=== PATIENT | male | born 1950 | race Caucasian/White ===

== ENCOUNTER 2024-03-29 22:29 | Inpatient (IN) | payer MEDICARE, OTHER, SELFPAY ==
[2024-03-29 22:40] VITALS: BP 108/68; PULSE 118; PULSE 120; RESP 18; RESP 21; TEMP 37.6; O2SAT 92
[2024-03-29 23:00] VITALS: BP 108/68; PULSE 119; RESP 19; O2SAT 92
[2024-03-29 23:14] LABS: Add Manual Diff / Slide Review NO; Basophils Absolute Auto 100 /uL (0-100); Basophils Percent Auto 0.4 % (0-2); Eosinophils Absolute Auto 0 /uL (0-450); Eosinophils Percent Auto 0.1 % (2-4); Hematocrit 31.5 % (41-53); Hemoglobin 10.5 g/dL (13.5-17.5); INR 1.2 (0.9-1.3); Lymphocytes Absolute Auto 700 /uL (1100-4500); Lymphocytes Percent Auto 3.7 % (25-40); Mean Corpuscular HGB Conc 33.3 % (30-36); Monocytes Absolute Auto 1200 /uL (0-900); Monocytes Percent Auto 6.4 % (3-14); Neutrophils Absolute Auto 17500 /uL (1500-7000); Neutrophils Percent Auto 89.4 % (50-75); Platelet Count 350 X10^3/uL (150-400); Prothrombin Time 13.7 SECONDS (9.4-12.5); Red Blood Cell Count 3.75 X10^6/uL (4.5-5.9); Red Cell Distribution Width 13.9 % (11.6-14.8); White Blood Cell Count 19.5 X10^3/uL (4.5-11.0)
[2024-03-29 23:15] LABS: PTT Partial Thromboplastin Tim 30 SECONDS (25.1-36.5)
[2024-03-29 23:17] LABS: Alanine Aminotransferase 16 IU/L (<50); Albumin Globulin Ratio 1.5 (1.0-2.8); Alkaline Phosphatase 78 U/L (38-126); Aspartate Aminotransferase 21 IU/L (17-59); BUN Creatinine Ratio 36.1 (6-22); Bilirubin Total 1.3 mg/dL (0.2-1.3); Blood Urea Nitrogen 35 mg/dL (9-20); Calcium 8.8 mg/dL (8.4-10.2); Carbon Dioxide 20 mmol/L (22-32); Chloride 110 mmol/L (98-107); Estimated Glomerular Filt Rate > 60 mL/min (>60); Globulin 2.7 g/dL (1.7-4.1); Glucose 194 mg/dL (80-110); HEMOLYSIS < 15 (0-50); Potassium 4.1 mmol/L (3.4-5.1); Sodium 141 mmol/L (137-145); Total Protein 6.7 g/dL (6.3-8.2)
[2024-03-29 23:18] LABS: Lactate (Lactic Acid) 3.2 mmol/L (0.7-2.1)
[2024-03-29 23:30] VITALS: BP 111/65; PULSE 117; RESP 20; O2SAT 91
[2024-03-30] VITALS (8 sets, daily range): BP systolic 62–126; BP diastolic 38–69; PULSE 108–123; RESP 15–32; TEMP 36.2–37.3; O2SAT 80–93; BMI 30.5
--- NOTE | 2024-03-30 00:09 | PC.NURSE ---
Dr Houston notified of Lactate and ordered BCx2.
--- NOTE | 2024-03-30 00:29 | ED.WEAKNESS ---
HPI - Weakness General Chief complaint: Abdominal Pain Stated complaint: GI Bleed Time Seen by Provider: 03/29/24 22:41 Source: EMS Mode of arrival: EMS History of Present Illness HPI Narrative: Patient is a 73-year-old male with history of advanced dementia who resides at [facility]. He is no longer verbal wheelchair-bound sometimes interacts and laughs. Staff reported dark tarry stools ongoing for about 2 weeks he started shaking at dinnertime unable to hold any sort of silverware. He does need assistance with feeding as well. It was recommended that he be brought to the ED for evaluation. is at bedside long conversation with her. He is a DNR we talked about goals of care and goals with the ED visit. At this time she was agreeable to blood work but does not want much else done. She would like to make him comfortable. No IV fluids no antibiotics no imaging Patient was in hospice if few months back but was doing well and ultimately discharged from hospice. stated he had a great day yesterday and ambulated which was the 1st in a long time. Related Data Allergies Allergy/AdvReac Type Severity Reaction Status Date / Time No Known Drug Allergies Allergy Verified 03/30/24 00:40 Patient History Social History Smoking Status: Never smoker Smoking Status: Never smoker Substance Use Type: does not use Exam Initial Vital Signs Initial Vital Signs: Vital Signs Temperature 99.6 F 03/29/24 22:40 Pulse Rate 118 H 03/29/24 22:40 Respiratory Rate 18 03/29/24 22:40 Blood Pressure 108/68 03/29/24 22:40 Pulse Oximetry 92 03/29/24 22:40 Oxygen Delivery Method Room Air 03/29/24 22:40 Course Orders Ordered: ED Orders 03/29/24 21:45 Blood Culture Stat 03/29/24 22:46 CBC Auto Diff [Complete Blood Count AUTO DIFF] Stat CMP [Comprehensive Metabolic Panel] Stat Lactate (Lactic Acid) Stat PTT Partial Thromboplastin Jeff Stat Prothrombin Time INR Stat 03/29/24 22:50 Type and Screen Stat Discontinued Medications Morphine Sulfate (Morphine 2 Mg/Ml Inj) 2 mg IV NOW ONE Stop: 03/30/24 00:30 Last Admin: 03/30/24 00:39 Dose: 2 mg Documented By: Morphine Sulfate (Morphine 2 Mg/Ml Inj) 2 mg IV NOW ONE Stop: 03/30/24 03:58 Vital Signs Vital signs: Vital Signs - 8 hr 03/29/24 22:40 03/29/24 22:40 03/29/24 23:00 Temperature 99.6 F Pulse Rate 118 H 120 H 119 H Respiratory Rate 18 21 19 Blood Pressure 108/68 Pulse Oximetry 92 92 92 Oxygen Delivery Method Room Air 03/29/24 23:00 03/29/24 23:30 03/29/24 23:30 Temperature Pulse Rate 117 H Respiratory Rate 20 Blood Pressure 108/68 111/65 Pulse Oximetry 91 Oxygen Delivery Method 03/30/24 00:00 03/30/24 00:01 03/30/24 00:01 Temperature Pulse Rate 117 H 123 H Respiratory Rate 20 18 Blood Pressure 126/59 L Pulse Oximetry 91 93 Oxygen Delivery Method 03/30/24 00:30 03/30/24 00:31 03/30/24 00:31 Temperature Pulse Rate 118 H 118 H Respiratory Rate 20 15 Blood Pressure 89/69 L Pulse Oximetry 88 L Oxygen Delivery Method MDM - Weakness Lab Data 03/29/24 22:46 03/29/24 22:46 Labs: Lab Results 03/29/24 03/29/24 03/30/24 Range/Units 22:46 22:50 00:10 WBC 19.5 H (4.5-11.0) X10^3/uL RBC 3.75 L (4.5-5.9) X10^6/uL Hgb 10.5 L (13.5-17.5) g/dL Hct 31.5 L (41-53) % MCV 84.0 (80-100) fL MCH 28.0 (26-34) PG MCHC 33.3 (30-36) % RDW 13.9 (11.6-14.8) % Plt Count 350 (150-400) X10^3/uL Neut % (Auto) 89.4 H (50-75) % Lymph % (Auto) 3.7 L (25-40) % [place] % (Auto) 6.4 (3-14) % Eos % (Auto) 0.1 L (2-4) % Baso % (Auto) 0.4 (0-2) % Neut # (Auto) 60888 H (9663-7959) /uL Lymph # (Auto) 700 L (4696-3500) /uL [place] # (Auto) 1200 H (0-900) /uL Eos # (Auto) 0 (0-450) /uL Baso # (Auto) 100 (0-100) /uL PT 13.7 H (9.4-12.5) SECONDS INR 1.2 (0.9-1.3) APTT 30 (25.1-36.5) SECONDS Sodium 141 (137-145) mmol/L Potassium 4.1 (3.4-5.1) mmol/L Chloride 110 H (98-107) mmol/L Carbon Dioxide 20 L (22-32) mmol/L BUN 35 H (9-20) mg/dL Creatinine 0.97 (0.66-1.25) mg/dL Estimated GFR > 60 (>60) mL/min BUN/Creatinine Ratio 36.1 H (6-22) Glucose 194 H (80-110) mg/dL Lactate 3.2 H 1.2 (0.7-2.1) mmol/L Calcium 8.8 (8.4-10.2) mg/dL Total Bilirubin 1.3 (0.2-1.3) mg/dL AST 21 (17-59) IU/L ALT 16 (<50) IU/L Alkaline Phosphatase 78 (38-126) U/L Total Protein 6.7 (6.3-8.2) g/dL Albumin 4.0 (3.5-5.0) g/dL Globulin 2.7 (1.7-4.1) g/dL Albumin/Globulin Ratio 1.5 (1.0-2.8) Blood Type O Positive Antibody Screen Negative [facility] Narrative Medical decision making narrative: Patient is 73-year-old male with advanced end-stage dementia presenting today. Possible GI bleed does appear slightly pale. Apparently he is having some jerking episodes and waking up. Very long discussion with at bedside about goals and plan. She is agreeable to blood work. Blood work is reviewed WBC 19.5, hemoglobin 10.5 hematocrit 31.5, platelets 350 INR 1.2, PTT 30 lactate 3.2 with repeat 1.2 sodium 141, potassium 4.1 chloride 110, carbon dioxide 20, BUN 35 creatinine 0.9 glucose 194 bilirubin 1.3 AST 21 ALT 16 alk-phos 78 ultimately decided no further testing or interventions comfort measures only. Patient is requiring oxygen. At this time [facility] is unable to take him back at this stage without admission to hospice. Dr. Correa, updated on patient's symptoms test results goals of care POLST form, in accepts to observation Patient has been given morphine for comfort he continues to have intermittent twitches. He does wake up and look at me but is very non responsive. Discharge Plan Departure Patient Disposition: Admitted as Observation Clinical Impression: Severe Alzheimer's dementia, Hypoxia Admit Date/Time: 03/30/24 01:30 Admit Provider: Tye Correa
[2024-03-30] MEDS: MORPHINE 2 MG/ML INJ IV ×2 (00:39→04:05)
[2024-03-30 00:44] LABS: Reflexed Lactate in 2 Hours Y
[2024-03-30 00:59] LABS: Lactate 2HR (Lactic Acid Rflx) 1.2 mmol/L (0.7-2.1)
--- NOTE | 2024-03-30 01:33 | PC.NURSE ---
Pt lying back in gurney. Eyes closed, assume asleep. Appears in no acute distress. at bedside. recliner set up for .
--- NOTE | 2024-03-30 02:52 | PC.NURSE ---
Pt lying back in gurney. stepped outside to lay down in car. Pt breathing 22 per min, even and unlabored. Eyes closed, assume asleep.
--- NOTE | 2024-03-30 04:39 | P.HP_ITS ---
History of Present Illness History of Present Illness Date Patient Seen: 03/30/24 Time Patient Seen: 04:15 Chief complaint: GI Bleed Narrative: 73 years old half-way resident with advanced dementia, hypertension and multiple other medical issues was sent to the emergency room for black tarry stools. Patient is at this time nonverbal. Most of the history has been obtained from the chart/caregivers and also spouse/family at the bedside. Patient's cognition has been progressively going downhill and now completely dependent on caregivers for all activities of daily living. Patient was apparently in hospice care a few months ago but discharged with clinical progress. Workup in the ED revealed a hemoglobin of 10.5, WBC of 19.5, lactate of 3.2. Now family has requested focus on comfort care and possibly evaluate for hospice again. Patient was admitted for observation [facility] Social History Smoking Status: Never smoker Meds Home Medications and Allergies Allergies Allergy/AdvReac Type Severity Reaction Status Date / Time No Known Drug Allergies Allergy Verified 03/30/24 00:40 Review of Systems Review of Systems Narrative: non verbal Exam Vital Signs (past 8 hours): - 03/29/24 22:40 03/29/24 22:40 03/29/24 23:00 Temperature 99.6 F Pulse Rate 118 H 120 H 119 H Respiratory Rate 18 21 19 Blood Pressure 108/68 Pulse Oximetry 92 92 92 Oxygen Delivery Method Room Air Oxygen Flow Rate 03/29/24 23:00 03/29/24 23:30 03/29/24 23:30 Temperature Pulse Rate 117 H Respiratory Rate 20 Blood Pressure 108/68 111/65 Pulse Oximetry 91 Oxygen Delivery Method Oxygen Flow Rate 03/30/24 00:00 03/30/24 00:01 03/30/24 00:01 Temperature Pulse Rate 117 H 123 H Respiratory Rate 20 18 Blood Pressure 126/59 L Pulse Oximetry 91 93 Oxygen Delivery Method Oxygen Flow Rate 03/30/24 00:30 03/30/24 00:31 03/30/24 00:31 Temperature Pulse Rate 118 H 118 H Respiratory Rate 20 15 Blood Pressure 89/69 L Pulse Oximetry 88 L Oxygen Delivery Method Oxygen Flow Rate 03/30/24 03:43 03/30/24 03:44 03/30/24 03:44 Temperature Pulse Rate 108 H 110 H Respiratory Rate Blood Pressure 85/58 L Pulse Oximetry 82 L 84 L Oxygen Delivery Method Oxygen Flow Rate 03/30/24 04:13 Temperature 99.2 F Pulse Rate 109 H Respiratory Rate 32 H Blood Pressure 84/55 L Pulse Oximetry 84 L Oxygen Delivery Method Nasal Cannula Oxygen Flow Rate 4 Oxygen Delivery Method Nasal Cannula Oxygen Flow Rate 4 Narrative Exam Narrative: nonverbal and not following commands Objective Labs 03/29/24 22:46 03/29/24 22:46 Labs: Laboratory Results - last 24 hr 03/29/24 03/29/24 03/30/24 22:46 22:50 00:10 WBC 19.5 H RBC 3.75 L Hgb 10.5 L Hct 31.5 L MCV 84.0 MCH 28.0 MCHC 33.3 RDW 13.9 Plt Count 350 Neut % (Auto) 89.4 H Lymph % (Auto) 3.7 L [place] % (Auto) 6.4 Eos % (Auto) 0.1 L Baso % (Auto) 0.4 Neut # (Auto) 46436 H Lymph # (Auto) 700 L [place] # (Auto) 1200 H Eos # (Auto) 0 Baso # (Auto) 100 PT 13.7 H INR 1.2 APTT 30 Sodium 141 Potassium 4.1 Chloride 110 H Carbon Dioxide 20 L BUN 35 H Creatinine 0.97 Estimated GFR > 60 BUN/Creatinine Ratio 36.1 H Glucose 194 H Lactate 3.2 H 1.2 Calcium 8.8 Total Bilirubin 1.3 AST 21 ALT 16 Alkaline Phosphatase 78 Total Protein 6.7 Albumin 4.0 Globulin 2.7 Albumin/Globulin Ratio 1.5 Blood Type O Positive Antibody Screen Negative Assessment & Plan Assessment & Plan narrative: 73 years old half-way resident with advanced dementia, hypertension and multiple other medical issues was sent to the emergency room for black tarry stools. Patient is at this time nonverbal. Most of the history has been obtained from the chart/caregivers and also spouse/family at the bedside. Patient's cognition has been progressively going downhill and now completely dependent on caregivers for all activities of daily living. Patient was apparently in hospice care a few months ago but discharged with clinical progress. Workup in the ED revealed a hemoglobin of 10.5, WBC of 19.5, lactate of 3.2. Now family has requested focus on comfort care and possibly evaluate for hospice again. Patient was admitted for observation 1. GI bleed. Spouse/decision makers are very clear that they do not want any medications or interventions at this time. He is hypotensive and also noted to have black tarry stools. It could very well be life-threatening and family at this time want to focus on comfort care measures only. 2. Advanced dementia with complete dependence on caregivers for all activities of daily living. At this time patient is nonverbal. He is a candidate for hospice and will initiate a referral. In the meantime start comfort care measures 3 hypotension/tachycardia with the likely shock from underlying GI bleed. Focus on comfort care as noted above Patient is admitted under observation status. Extended discussion with the family at the bedside and initiated on comfort care measures only. POLST form has been filed by the emergency room provider. Patient was seen remotely by 2 way video call after obtaining permission from [facility] and patient is located in [place], [place]. Time spent 15 minutes
[2024-03-30] MEDS: MORPHINE 4 MG/ML INJ 3 MG IV ×2 (05:28→08:38)
--- NOTE | 2024-03-30 08:36 | CM.DANOTE ---
Initial DCP Assessment Visit Note Reviewed EMR and team rounds for status updates. Pt was sleeping, is non-verbal at baseline due to end stage Alzheimer's disease. Called pt's , Kellie, to introduce self and role. Pt resides at [facility], they state that they cannot take him back without him re-starting hospice services due to his declining condition and end of life care needs. Pt's states that she would like this BUSINESS PROCESS REPRESENTATIVE to move forward with a new referral so he can return there at discharge. Facility will transport. Payor: Medicare PCP: (facility provider) Pt is a 73 year-old M with end stage Alzheimer's dementia, he is non-verbal, wheelchair bound, and was previously on hospice 2-months ago until they discharged him for improving in overall condition. Pt presented the ED via EMS last evening after staff had noticed that he's been having black, tarry stools for the last weeks. He has been declining overall in cognition, function, and now is completely dependent on all ADL's at the [facility]. shares that she does not want any interventions or testing done on pt, and wants him to be comfort measures only. He did receive a dose of morphone for comfort in the ED, then was admitted to the floor for further tx/evaluation. DCP will continue to follow and assist with the coordination of hospice referral and d/c back to the facility once hospice is ready to admit. Discharge Planning/Care Management Advanced directive, confirm from FAMILY Start: 03/30/24 04:37 Freq: Q24H Status: Active Protocol: Document 03/30/24 05:35 MW (Rec: 03/30/24 06:09 MW [id number]) Advance Directive, confirm on record Time 05:00 Person contacted Copy received Yes CM Discharge Assessment Start: 03/30/24 08:33 Freq: Status: Active Protocol: Document 03/30/24 08:33 DPL (Rec: 03/30/24 08:36 DPL [id number]) Discharge Planning Assessment Assigned It Training Specialist YANE Walls Advance Directives? Yes Advance Directives on File Yes History Provided By Significant Other,Medical Record Expected Length of Stay 2 Has Patient been admitted in last 30 No days? Prior Living Arrangements Assisted Living Comment [facility] Household Members none Type of transporation used prior to Relies on Others admit Facility Name Admitted From: [facility] Willing to Return to Facility? Yes Independent with ADL's No: Pt is end stage Alzheimer' s and is totally dependent on all ADL's. Is patient alert and oriented? No Needs Assistance With Bathing,Eating,Grooming,Meal Prep,Toileting,Managing Medications,Home Chores / Shopping Caregiver for Another No DME Already Rented / Owned Hospital Bed,Wheelchair Comment D/c back to [facility] with hospice services. Barriers to Discharge No Discharge Plan Assisted Living Facility [facility] Transportation Arrangement Facility Additional Comment Hospice of the Review Status In Process Please Provide Date Initial DC 03/30/24 Assessment Was Performed
[2024-03-30] MEDS: LORazepam 2 MG/ML INJ (09:53)
[2024-03-30] MEDS: MORPHINE 50 MG in SODIUM CHLORIDE 0.9% 45 ML IV (09:58)
--- NOTE | 2024-03-30 12:16 | PC.NURSE ---
Upon arrival of this nurse this am, pt appeared to be resting comfortably with sitting at bedside. This nurse called to bedside about an hour later because the pt was moaning and seemed distressed. 3mg IV morphine administered per DEC. This nurse called back to the bedside about an hour and a half after this for abnormal breathing per family members. Pt assessed, found to be agitated and working hard to breath. IV ativan administered with little response. Pt continuing to moan with breathing, at bedside visibly distressed. Morphine drip started at 9:58 at 5mL/hr. Little change in pt condition 30 min later so morphine drip increased to 10mL/hr per Dr. Gauthier. Reassessed around 1130, pt breathing easier and family members at bedside calmer. Bladder scan performed: 45mL urine in bladder. Urine noted in brief and pt still laying on bedding from home. does not want patient moved or bedding removed. Morphine drip increased to 11mL/hr per Dr. Gauthier d/t continued moaning from patient.
--- NOTE | 2024-03-30 16:11 | P.HP_ITS ---
History of Present Illness History of Present Illness Chief complaint: GI Bleed Narrative: From overnight provider: 73 years old fdc resident with advanced dementia, hypertension and multiple other medical issues was sent to the emergency room for black tarry stools. Patient is at this time nonverbal. Most of the history has been obtained from the chart/caregivers and also spouse/family at the bedside. Patient's cognition has been progressively going downhill and now completely dependent on caregivers for all activities of daily living. Patient was apparently in hospice care a few months ago but discharged with clinical progress. Workup in the ED revealed a hemoglobin of 10.5, WBC of 19.5, lactate of 3.2. Now family has requested focus on comfort care and possibly evaluate for hospice again. Patient was admitted for observation. Patient this morning is moaning and family asking for medications to ease his pain. Morphine drip ordered. [facility] Social History household members: none Smoking Status: Never smoker Meds Home Medications and Allergies Home Medications Medication Instructions Recorded Confirmed Type Unobtainable 03/30/24 03/30/24 History Allergies Allergy/AdvReac Type Severity Reaction Status Date / Time atenolol Allergy Verified 03/30/24 05:40 ciprofloxacin Allergy Verified 03/30/24 05:40 metronidazole Allergy Rash Verified 03/30/24 05:40 quetiapine Allergy Verified 03/30/24 05:40 Review of Systems Review of Systems Narrative: non verbal Exam Vital Signs (past 8 hours): - 03/30/24 10:56 03/30/24 12:00 Temperature 97.1 F L Pulse Rate 116 H Respiratory Rate 24 Blood Pressure 62/38 L Pulse Oximetry 80 L Oxygen Delivery Method Nasal Cannula Oxygen Flow Rate 2 Oxygen Delivery Method Nasal Cannula Oxygen Flow Rate 2 Narrative Exam Narrative: nonverbal and not following commands ill-appearing Objective Labs 03/29/24 22:46 03/29/24 22:46 Labs: Laboratory Results - last 24 hr 03/29/24 03/29/24 03/30/24 22:46 22:50 00:10 WBC 19.5 H RBC 3.75 L Hgb 10.5 L Hct 31.5 L MCV 84.0 MCH 28.0 MCHC 33.3 RDW 13.9 Plt Count 350 Neut % (Auto) 89.4 H Lymph % (Auto) 3.7 L [place] % (Auto) 6.4 Eos % (Auto) 0.1 L Baso % (Auto) 0.4 Neut # (Auto) 59914 H Lymph # (Auto) 700 L [place] # (Auto) 1200 H Eos # (Auto) 0 Baso # (Auto) 100 PT 13.7 H INR 1.2 APTT 30 Sodium 141 Potassium 4.1 Chloride 110 H Carbon Dioxide 20 L BUN 35 H Creatinine 0.97 Estimated GFR > 60 BUN/Creatinine Ratio 36.1 H Glucose 194 H Lactate 3.2 H 1.2 Calcium 8.8 Total Bilirubin 1.3 AST 21 ALT 16 Alkaline Phosphatase 78 Total Protein 6.7 Albumin 4.0 Globulin 2.7 Albumin/Globulin Ratio 1.5 Blood Type O Positive Antibody Screen Negative Assessment & Plan Assessment & Plan narrative: 1. GI bleed, with likely hemorrhagic shock 2. Advanced dementia with complete dependence on caregivers for all activities of daily living. 3. Hypotension/tachycardia with the likely shock from underlying GI bleed. Focus on comfort care as noted above Spouse/decision makers are very clear that they do not want any medications or interventions at this time. He is hypotensive and also noted to have black tarry stools. Placed on morphine drip for comfort.
--- NOTE | 2024-03-30 16:20 | PM.DDS.1 ---
Discharge Summary History of Illness Narrative: From overnight provider: 73 years old detention resident with advanced dementia, hypertension and multiple other medical issues was sent to the emergency room for black tarry stools. Patient is at this time nonverbal. Most of the history has been obtained from the chart/caregivers and also spouse/family at the bedside. Patient's cognition has been progressively going downhill and now completely dependent on caregivers for all activities of daily living. Patient was apparently in hospice care a few months ago but discharged with clinical progress. Workup in the ED revealed a hemoglobin of 10.5, WBC of 19.5, lactate of 3.2. Now family has requested focus on comfort care and possibly evaluate for hospice again. Patient was admitted for observation. Patient this morning is moaning and family asking for medications to ease his pain. Morphine drip ordered. Hospital Course Date of Admission: 03/30/24 01:30 Primary care provider: Doctor Herring, Discharge Diagnosis: 1. GI bleed, with likely hemorrhagic shock 2. Advanced dementia with complete dependence on caregivers for all activities of daily living. 3. Hypotension/tachycardia with the likely shock from underlying GI bleed. Focus on comfort care as noted above Hospital Course: Spouse/decision makers are very clear that they do not want any medications or interventions at this time. He is hypotensive and also noted to have black tarry stools. Placed on morphine drip for comfort. He at approx 1430 with family at bedside. Objective Labs 03/29/24 22:46 03/29/24 22:46 Labs: Laboratory Results - last 24 hr 03/29/24 03/29/24 03/30/24 22:46 22:50 00:10 WBC 19.5 H RBC 3.75 L Hgb 10.5 L Hct 31.5 L MCV 84.0 MCH 28.0 MCHC 33.3 RDW 13.9 Plt Count 350 Neut % (Auto) 89.4 H Lymph % (Auto) 3.7 L [place] % (Auto) 6.4 Eos % (Auto) 0.1 L Baso % (Auto) 0.4 Neut # (Auto) 94768 H Lymph # (Auto) 700 L [place] # (Auto) 1200 H Eos # (Auto) 0 Baso # (Auto) 100 PT 13.7 H INR 1.2 APTT 30 Sodium 141 Potassium 4.1 Chloride 110 H Carbon Dioxide 20 L BUN 35 H Creatinine 0.97 Estimated GFR > 60 BUN/Creatinine Ratio 36.1 H Glucose 194 H Lactate 3.2 H 1.2 Calcium 8.8 Total Bilirubin 1.3 AST 21 ALT 16 Alkaline Phosphatase 78 Total Protein 6.7 Albumin 4.0 Globulin 2.7 Albumin/Globulin Ratio 1.5 Blood Type O Positive Antibody Screen Negative
--- NOTE | 2024-03-30 17:10 | PC.NURSE ---
This nurse called to bedside by family members, no respirations, no heart beat on auscultation. Time of 1430, confirmed by Dr. Gauthier. Family at bedside.
--- NOTE | 2024-03-31 07:18 | CM.DPNOTE ---
DCP Note CHILD WELFARE CASEWORKER reviewed EMR. Per chart review, pt there in the hospital yesterday. CHILD WELFARE CASEWORKER called [facility] to notify to cancel referral. No further CM needs identified at this time. YANE Ramirez
--- NOTE | 2024-03-31 11:27 | CM.DPNOTE ---
Call from Mary at [facility] and received update on pt expiring yesterday and faxed Note to [facility] per her request to review for their records. YANE Jimenez
== END 2024-03-30 17:30 | disposition expired | DRG 951 ==
LOC: ED 03-30 01:31 → AC 03-30 04:15
PROVIDERS: Admitting Provider Internal Medicine; Emergency Provider Emergency Medicine; Referring Provider Emergency Medicine; Visit Provider Internal Medicine
DX: Z51.5 Encounter for palliative care (principal); K92.2 Gastrointestinal hemorrhage, unspecified; R57.8 Other shock; I10 Essential (primary) hypertension; F03.90 Unspecified dementia, unspecified severity, without behavioral disturbance, psychotic disturbance, mood disturbance, and anxiety
CPT/HCPCS: 36415; 80053; 83605; 85025; 85610; 85730; 86850; 86900; 86901; 87040; 96374; 96376; 99284; G0378; J2060; J2270